=== PATIENT | female | born 1945 | race Caucasian/White ===

== ENCOUNTER 2018-04-09 09:47 | Inpatient (IN) | payer MEDICARE ==
[~2018-04-09] VITALS: Ht 157.5 cm; Wt 93.4 kg
[~2018-04-09 09:47] MED LIST: ASPI-1181 PO; AUD IH; DULO60CA63 PO; FLUT1AER IH; FURO20TA4 PO; MIDO5TAB PO; PRED10TA23 PO; SIMV20TA6 PO; TIOT18CA3 IH; TRAZ-187 PO
[2018-04-09 10:25] VITALS: BP 125/56
[2018-04-09] MEDS ORDERED: LEVOFLOXACIN 750 MG/D5W 150 ML 150 ML IV SCH (11:15)
[2018-04-09] MEDS ORDERED: ESOM40CA PO (11:22)
[2018-04-09 11:44] LABS: BASOPHILS % (AUTO) 0.5 % (0.0-5.0); EOSINOPHILS % (AUTO) 1.5 % (0.0-8.0); HEMATOCRIT 38.4 % (36-48); LYMPHOCYTES % (AUTO) 35.2 % (21.0-51.0); MEAN CORPUSCULAR HEMOGLOBIN 28.9 pg (27.0-33.0); MEAN CORPUSCULAR HGB CONC 33.5 g/dL (32.0-36.0); MEAN CORPUSCULAR VOLUME 86.3 fL (79-99); MONOCYTES % (AUTO) 6.7 % (3.0-13.0); NEUTROPHILS % (AUTO) 56.1 % (40.0-77.0); PLATELET COUNT (AUTO) 293 K/uL (130-400); RED BLOOD CELL COUNT(AUTO) 4.45 MIL/uL (4.00-5.50); RED CELL DISTRIBUTION WIDTH 14.2 % (11.0-15.5); WHITE BLOOD COUNT (AUTO) 8.5 K/uL (4.8-10.8)
[2018-04-09 11:54] LABS: CREATININE 1.1 mg/dL (0.5-1.5); POTASSIUM 3.6 mmol/L (3.5-5.1)
[2018-04-09 12:00] VITALS: BP 113/67
[2018-04-09 12:05] LABS: ABG BASE EXCESS 4.4 mmol/L (-2.0-3.0); ABG HCO3 29.6 mmol/L (21.0-28.0); ABG OXYGEN SATURATION 94.9 % (95.0-99.0); ABG PCO2 46 mmHg (32-45)
[2018-04-09] MEDS: 1/2 NORMAL SALINE 1,000 ML IV SCH (12:09)
[2018-04-09] MEDS: METHYLPREDNISOLONE SOD SUCC 40MG/ML 1ML IVP SCH ×2 (12:10→21:23)
[2018-04-09] MEDS: IPRATROPIUM/ALBUTEROL SULFATE 3 ML SOLUTION IH SCH ×3 (13:34→21:11)
[2018-04-09] MEDS ORDERED: IOHEXOL 350 MG/ML 100ML INFUS..BTL IV ONE (14:10)
[2018-04-09 16:00] VITALS: BP 127/72
[2018-04-09 19:10] VITALS: BP 139/65
[2018-04-10] VITALS (7 sets, daily range): BP systolic 120–145; BP diastolic 71–94
[2018-04-10] MEDS: IPRATROPIUM/ALBUTEROL SULFATE 3 ML SOLUTION IH SCH ×6 (01:00→21:26)
[2018-04-10] MEDS ORDERED: POTASSIUM CHLORIDE 20MEQ/100ML 100 ML IV PRN (01:45)
[2018-04-10] MEDS ORDERED: POTASSIUM CHLORIDE 10% ELIXIR 20 MEQ/15 ML UDCUP PO PRN (01:45)
[2018-04-10] MEDS ORDERED: DOCUSATE SODIUM 100 MG CAP PO PRN (01:45)
[2018-04-10] MEDS ORDERED: METOCLOPRAMIDE 10 MG/2 ML VIAL IVP PRN (01:45)
[2018-04-10] MEDS ORDERED: MAGNESIUM HYDROXIDE 30 ML/UDCUP PO PRN (01:45)
[2018-04-10] MEDS ORDERED: LIDOCAINE HCL-MPF 1% 2ML VIAL IVP PRN (01:45)
[2018-04-10] MEDS ORDERED: ACETAMINOPHEN 325 MG TAB PO PRN (01:45)
[2018-04-10] MEDS ORDERED: POTASSIUM CHLORIDE 20 MEQ ERTAB PO PRN (01:45)
[2018-04-10] MEDS: METHYLPREDNISOLONE SOD SUCC 40MG/ML 1ML IVP SCH ×3 (04:20→18:21)
[2018-04-10] MEDS: 1/2 NORMAL SALINE 1,000 ML IV SCH (04:28)
[2018-04-10] MEDS: ACETAMINOPHEN 325 MG TAB PO PRN ×2 (04:35→12:49)
[2018-04-10] MEDS ORDERED: BENZ-51 PO (05:56)
[2018-04-10] MEDS ORDERED: LEVO750T46 PO (05:57)
[2018-04-10] MEDS ORDERED: PRED20TA3 PO (06:02)
[2018-04-10] MEDS ORDERED: FURO40TA7 PO (06:02)
[2018-04-10] MEDS ORDERED: ALBU90AE IH (06:02)
[2018-04-10] MEDS: FAMOTIDINE 20MG TAB 20 MG TAB PO SCH (08:49)
[2018-04-10] MEDS ORDERED: NON-FORMULARY MEDICATION 1 EACH (Albuterol Sulfate 2.5 MG) IH SCH (10:15)
[2018-04-10] MEDS ORDERED: BENZONATATE 100 MG CAPSULE PO PRN (10:15)
[2018-04-10] MEDS: IPRATROPIUM 0.5 MG/2.5 ML INH IH SCH ×2 (12:00→18:00)
[2018-04-10] MEDS: GUAIFENESIN 600 MG TABLET.ER PO PRN ×2 (12:48→23:07)
[2018-04-10] MEDS: BUDESONIDE 0.5 MG/2 ML INH IH SCH (19:08)
[2018-04-10] MEDS: SIMVASTATIN 20 MG TABLET PO SCH (23:07)
[2018-04-10] MEDS: TRAZODONE HCL 100 MG TABLET PO SCH (23:07)
[2018-04-11] MEDS: IPRATROPIUM 0.5 MG/2.5 ML INH IH SCH
[2018-04-11] MEDS: IPRATROPIUM/ALBUTEROL SULFATE 3 ML SOLUTION IH SCH ×5 (01:23→22:29)
[2018-04-11 03:20] VITALS: BP 156/73
[2018-04-11] MEDS: METHYLPREDNISOLONE SOD SUCC 40MG/ML 1ML IVP SCH ×3 (04:28→18:42)
[2018-04-11] MEDS: BUDESONIDE 0.5 MG/2 ML INH IH SCH ×2 (06:42→22:29)
[2018-04-11 08:01] VITALS: BP 141/79
[2018-04-11] MEDS ORDERED: LEVOFLOXACIN 750 MG/D5W 150 ML 150 ML IV SCH (09:00)
[2018-04-11] MEDS: GUAIFENESIN 600 MG TABLET.ER PO PRN ×2 (09:01→17:55)
[2018-04-11] MEDS: ASPIRIN 81 MG EC TAB PO SCH (09:04)
[2018-04-11] MEDS: FAMOTIDINE 20MG TAB 20 MG TAB PO SCH (09:04)
[2018-04-11] MEDS: PANTOPRAZOLE SODIUM 40 MG TABLET.DR PO SCH (09:04)
[2018-04-11 11:42] VITALS: BP 128/82
[2018-04-11] MEDS ORDERED: DULOXETINE HCL 30 MG CAP PO SCH (16:00)
[2018-04-11 16:47] VITALS: BP 135/77
[2018-04-11 19:00] VITALS: BP 150/83
[2018-04-11] MEDS: TRAZODONE HCL 100 MG TABLET PO SCH (21:07)
[2018-04-11] MEDS: SIMVASTATIN 20 MG TABLET PO SCH (21:08)
[2018-04-11 23:00] VITALS: BP 132/66
[2018-04-12] MEDS: METHYLPREDNISOLONE SOD SUCC 40MG/ML 1ML IVP SCH ×2 (03:16→11:56)
[2018-04-12 03:20] VITALS: BP 137/92
[2018-04-12] MEDS: GUAIFENESIN 600 MG TABLET.ER PO PRN (04:32)
[2018-04-12] MEDS: IPRATROPIUM/ALBUTEROL SULFATE 3 ML SOLUTION IH SCH ×2 (07:06→13:24)
[2018-04-12] MEDS: BUDESONIDE 0.5 MG/2 ML INH IH SCH (07:06)
[2018-04-12 08:00] VITALS: BP 117/71
[2018-04-12] MEDS: ASPIRIN 81 MG EC TAB PO SCH (09:37)
[2018-04-12] MEDS: FAMOTIDINE 20MG TAB 20 MG TAB PO SCH (09:38)
[2018-04-12] MEDS: PANTOPRAZOLE SODIUM 40 MG TABLET.DR PO SCH (09:38)
[2018-04-12 12:00] VITALS: BP 146/84
[2018-04-12] MEDS ORDERED: DULOXETINE HCL 30 MG CAP PO SCH (16:00)
== END 2018-04-12 14:45 | disposition home or self-care (01) | DRG 191 ==
LOC: EDH 09:47 → EDHIP 10:06 → 3BH 10:27
PROVIDERS: ADMIT Internal Medicine; ATTEND Internal Medicine
PROC: 5A09357 Assistance with Respiratory Ventilation, Less than 24 Consecutive Hours, Continuous Positive Airway Pressure (ICD-10-PCS; principal; 2018-04-10)
PROC: 5A09357 Assistance with Respiratory Ventilation, Less than 24 Consecutive Hours, Continuous Positive Airway Pressure (ICD-10-PCS; 2018-04-10)
DX: J44.1 Chronic obstructive pulmonary disease with (acute) exacerbation (principal); J96.11 Chronic respiratory failure with hypoxia; T38.0X5A Adverse effect of glucocorticoids and synthetic analogues, initial encounter; G47.33 Obstructive sleep apnea (adult) (pediatric); E66.9 Obesity, unspecified; R73.9 Hyperglycemia, unspecified; I10 Essential (primary) hypertension; F41.8 Other specified anxiety disorders; Z68.37 Body mass index [BMI] 37.0-37.9, adult; Z99.81 Dependence on supplemental oxygen; Z87.891 Personal history of nicotine dependence; Z88.0 Allergy status to penicillin; Y92.89 Other specified places as the place of occurrence of the external cause
CPT/HCPCS: 36415; 36600; 71046; 71275; 80048; 80339; 82803; 82948; 85025; 87071; 87205; 94640; 94664; 94668; J1956; J2920; Q9967

== ENCOUNTER → 2018-07-09 | Outpatient (CLI) | payer MEDICARE ==
[~2018-07-09] MED LIST changes: +ALBU90AE IH; +BENZ-51 PO; -DULO60CA63 PO; +ESOM40CA PO; -FURO20TA4 PO; +FURO40TA7 PO; +LEVO750T46 PO; -MIDO5TAB PO; -PRED10TA23 PO
[2018-07-09 10:17] LABS: ABG BASE EXCESS 3.1 mmol/L (-2.0-3.0); ABG OXYGEN SATURATION 91.5 % (95.0-99.0); ABG PCO2 43 mmHg (32-45)
== END | disposition home or self-care (01) ==
LOC: RAH 09:32
PROVIDERS: ATTEND Internal Medicine
DX: I31.3 Pericardial effusion (noninflammatory) (principal); R94.31 Abnormal electrocardiogram [ECG] [EKG]; R06.02 Shortness of breath
CPT/HCPCS: 36600; 82803; 93005; 93306

== ENCOUNTER 2018-08-22 09:44 | Inpatient (IN) | payer MEDICARE | END 2018-08-29 17:30 | LOC: EDH 09:44 → EDHIP 14:38 → 2AH 08-26 15:48 → 2CH 22:47 | PROC: 0T778DZ Dilation of Left Ureter with Intraluminal Device, Via Natural or Artificial Opening Endoscopic (ICD-10-PCS; principal; 2018-08-22 11:50) | DX: A41.51 Sepsis due to Escherichia coli [E. coli] (principal); R65.21 Severe sepsis with septic shock; N13.2 Hydronephrosis with renal and ureteral calculous obstruction; N17.9 Acute kidney failure, unspecified; N13.6 Pyonephrosis; J44.1 Chronic obstructive pulmonary disease with (acute) exacerbation; E66.9 Obesity, unspecified; R09.02 Hypoxemia; I12.9 Hypertensive chronic kidney disease with stage 1 through stage 4 chronic kidney disease, or unspecified chronic kidney disease; Z99.81 Dependence on supplemental oxygen ==

== ENCOUNTER → 2018-10-20 | Outpatient (CLI) | payer MEDICARE ==
[~2018-10-20] MED LIST changes: +ALBUTEROL NEB IH; -ASPI-1181 PO; +ASPI-555 PO; -AUD IH; +DULO60CA63 PO; +FURO20TA4 PO; -FURO40TA7 PO; -LEVO750T46 PO; +MIDO5TAB PO; +SALBUTAMOL IH; -SIMV20TA6 PO; +SPIR25TA6 PO; -TRAZ-187 PO
== END | disposition home or self-care (01) ==
LOC: RAH 13:17
PROVIDERS: ATTEND Internal Medicine
DX: J44.9 Chronic obstructive pulmonary disease, unspecified (principal); M47.815 Spondylosis without myelopathy or radiculopathy, thoracolumbar region
CPT/HCPCS: 71250

== ENCOUNTER 2020-03-04 11:07 | Inpatient (IN) | payer MEDICARE ==
[~2020-03-04] VITALS: Ht 157.5 cm; Wt 91.6 kg
[~2020-03-04 11:07] MED LIST changes: -ALBU90AE IH; -ALBUTEROL NEB IH; -ASPI-555 PO; +ASPI-556 PO; -BENZ-51 PO; -DULO60CA63 PO; +DULO60CA64 PO; +EZET10TA48 PO; -FLUT1AER IH; -MIDO5TAB PO; +REVE175V IH; +TERB250T51 PO; -TIOT18CA3 IH; +TRAZ-187 PO
[2020-03-04] MEDS ORDERED: DOXYCYCLINE 100MG+NS 250ML IV SCH (12:30)
[2020-03-04] MEDS: CEFTRIAXONE SODIUM 1 GM IVP SCH (12:30)
[2020-03-04] MEDS ORDERED: ALBUTEROL INHALER 90MCG/INH IH PRN (12:45)
[2020-03-04] MEDS ORDERED: TRAZODONE HCL 100 MG TABLET PO PRN (12:45)
[2020-03-04] MEDS: DOXYCYCLINE 100MG+NS 250ML 250 ML IV SCH (13:00)
[2020-03-04] MEDS ORDERED: ACETAMINOPHEN 325 MG TAB PO PRN (13:00)
[2020-03-04] MEDS ORDERED: DOXYCYCLINE 100MG+NS 250ML 250 ML IV ONE (13:07)
[2020-03-04] MEDS: METHYLPREDNISOLONE SOD SUCC 40MG/ML 1ML IVP SCH ×2 (14:00→21:00)
[2020-03-04] MEDS ORDERED: CEFTRIAXONE SODIUM 1 GM ONE (14:11)
[2020-03-04] MEDS ORDERED: SODIUM CHLORIDE 0.9% 50 ML IV ONE (14:11)
[2020-03-04] MEDS ORDERED: METHYLPREDNISOLONE SOD SUCC 40MG/ML 1ML ONE ×2 (14:11→21:33)
[2020-03-04] MEDS: INSULIN HUMULIN R 100 UNIT/ML 3ML SQ SCH ×2 (16:30→21:00)
[2020-03-04] MEDS ORDERED: ALBUTEROL INHALER 90MCG/INH IH ONE (19:49)
[2020-03-04] MEDS ORDERED: FAMOTIDINE/PF 20 MG/2 ML VIAL IV ONE (21:29)
[2020-03-04] MEDS ORDERED: INSULIN HUMULIN R 100 UNIT/ML 3ML ONE (21:29)
[2020-03-05] MEDS: CEFTRIAXONE SODIUM 1 GM IVP SCH ×2 (00:30→13:05)
[2020-03-05] MEDS: DOXYCYCLINE 100MG+NS 250ML 250 ML IV SCH ×2 (01:00→13:05)
[2020-03-05] MEDS ORDERED: CEFTRIAXONE SODIUM 1 GM ONE (01:14)
[2020-03-05] MEDS ORDERED: DOXYCYCLINE 100MG+NS 250ML 250 ML IV ONE (01:14)
[2020-03-05 04:40] VITALS: BP 117/63
[2020-03-05] MEDS: INSULIN HUMULIN R 100 UNIT/ML 3ML SQ SCH ×4 (05:53→21:00)
[2020-03-05 08:00] VITALS: BP 124/74
[2020-03-05 08:18] LABS: BASOPHILS % (AUTO) 0.1 % (0.0-5.0); HEMATOCRIT 43.1 % (36-48); LYMPHOCYTES % (AUTO) 16.8 % (21.0-51.0); MEAN CORPUSCULAR HEMOGLOBIN 28.4 pg (27.0-33.0); MEAN CORPUSCULAR HGB CONC 31.8 g/dL (32.0-36.0); MEAN CORPUSCULAR VOLUME 89.2 fL (79-99); MONOCYTES % (AUTO) 2.5 % (3.0-13.0); NEUTROPHILS % (AUTO) 80.2 % (40.0-77.0); PLATELET COUNT (AUTO) 322 K/uL (130-400); RED BLOOD CELL COUNT(AUTO) 4.83 MIL/uL (4.00-5.50); RED CELL DISTRIBUTION WIDTH 12.5 % (11.0-15.5); WHITE BLOOD COUNT (AUTO) 11.2 K/uL (4.8-10.8)
[2020-03-05] MEDS: FAMOTIDINE/PF 20 MG/2 ML VIAL IV SCH (08:43)
[2020-03-05] MEDS: FUROSEMIDE 20 MG TABLET PO SCH (08:44)
[2020-03-05] MEDS: ENOXAPARIN SODIUM 40 MG/0.4 ML SYRINGE SQ SCH (08:44)
[2020-03-05] MEDS: DULOXETINE HCL 30 MG CAP PO SCH (08:45)
[2020-03-05 08:56] LABS: ALANINE AMINOTRANSFERASE 19 U/L (12-78); ALBUMIN 3.3 g/dL (3.5-5.0); ASPARTATE AMINOTRANSFERASE 13 U/L (10-37); BILIRUBIN,TOTAL 0.3 mg/dL (0.2-1.0); CARBON DIOXIDE 30 mmol/L (21-32); CHLORIDE 105 mmol/L (101-111); CREATININE 1.2 mg/dL (0.5-1.5); GLOMERULAR FILTR. RATE CALC 47 mL/min (>60); GLUCOSE,RANDOM 163 mg/dL (70-105); POTASSIUM 4.3 mmol/L (3.5-5.1); SODIUM SERUM 143 mmol/L (136-145); TOTAL PROTEIN, SERUM 6.9 g/dL (6.0-8.3); UREA NITROGEN, BLOOD 24 mg/dL (7-18)
[2020-03-05] MEDS: METHYLPREDNISOLONE SOD SUCC 40MG/ML 1ML IVP SCH (09:04)
[2020-03-05 12:00] VITALS: BP 136/68
[2020-03-05] MEDS: PHARMACY COMMUNICATION MISC SCH ×3 (12:45→20:45)
[2020-03-05] MEDS: METHYLPREDNISOLONE SOD SUCC 125MG/2ML VIAL IVP SCH ×2 (13:10→22:38)
[2020-03-05 14:13] LABS: ABG BASE EXCESS 0.7 mmol/L (-2.0-3.0); ABG HCO3 25.7 mmol/L (21.0-28.0); ABG OXYGEN SATURATION 95.8 % (95.0-99.0); ABG PCO2 42 mmHg (32-45)
--- NOTE | 2020-03-05 15:42 | NUR ---
CM NOTE cm attempted phone call to patient to discuss d/c planning. Patient asked CM to call back at a later time. CM to follow up.
[2020-03-05 16:00] VITALS: BP 132/75
--- NOTE | 2020-03-05 17:17 | NUR ---
D/C PLAN CM spoke to pt regarding d/c planning. States she lives with spouse and he can assist in care as needed. Pt has wk, w/c, home o2, nebulizer, and NIV. CM offered short term snf/rehab as possible d/c option. Pt declined at this time. Plan to home. No needs verbalized or identified. CM to f/u. Addendum: 03/05/20 at 1718 by DRE RAHMAN CM Amended: Links added.
[2020-03-05] MEDS ORDERED: BUDESONIDE 0.5 MG/2 ML INH IH SCH (18:00)
[2020-03-05 19:45] VITALS: BP 120/59
[2020-03-05 20:15] VITALS: BP 127/76
[2020-03-06] VITALS (7 sets, daily range): BP systolic 120–143; BP diastolic 55–75
[2020-03-06] MEDS ORDERED: MEROPENEM 500 MG VIAL ONE ×2 (00:13→01:38)
[2020-03-06] MEDS: PHARMACY COMMUNICATION MISC SCH ×6 (00:45→19:50)
[2020-03-06] MEDS: CEFTRIAXONE SODIUM 1 GM IVP SCH ×2 (01:45→13:50)
[2020-03-06] MEDS: DOXYCYCLINE 100MG+NS 250ML 250 ML IV SCH ×2 (01:46→13:50)
[2020-03-06 05:52] LABS: BASOPHILS % (AUTO) 0.2 % (0.0-5.0); HEMATOCRIT 39.5 % (36-48); MEAN CORPUSCULAR HEMOGLOBIN 28.7 pg (27.0-33.0); MEAN CORPUSCULAR HGB CONC 32.2 g/dL (32.0-36.0); MEAN CORPUSCULAR VOLUME 89.2 fL (79-99); MONOCYTES % (AUTO) 1.6 % (3.0-13.0); NEUTROPHILS % (AUTO) 87.5 % (40.0-77.0); PLATELET COUNT (AUTO) 299 K/uL (130-400); RED BLOOD CELL COUNT(AUTO) 4.43 MIL/uL (4.00-5.50); RED CELL DISTRIBUTION WIDTH 12.7 % (11.0-15.5); WHITE BLOOD COUNT (AUTO) 11.6 K/uL (4.8-10.8)
[2020-03-06 06:24] LABS: ALANINE AMINOTRANSFERASE 19 U/L (12-78); ALBUMIN 3.1 g/dL (3.5-5.0); ASPARTATE AMINOTRANSFERASE 11 U/L (10-37); BILIRUBIN,TOTAL 0.3 mg/dL (0.2-1.0); CARBON DIOXIDE 28 mmol/L (21-32); CHLORIDE 105 mmol/L (101-111); CREATININE 1.2 mg/dL (0.5-1.5); GLOMERULAR FILTR. RATE CALC 47 mL/min (>60); GLUCOSE,RANDOM 190 mg/dL (70-105); POTASSIUM 4.3 mmol/L (3.5-5.1); SODIUM SERUM 142 mmol/L (136-145); TOTAL PROTEIN, SERUM 6.3 g/dL (6.0-8.3); UREA NITROGEN, BLOOD 31 mg/dL (7-18)
[2020-03-06] MEDS: INSULIN HUMULIN R 100 UNIT/ML 3ML SQ SCH ×4 (07:30→21:00)
[2020-03-06] MEDS: FUROSEMIDE 20 MG TABLET PO SCH (08:23)
[2020-03-06] MEDS: DULOXETINE HCL 30 MG CAP PO SCH (08:23)
[2020-03-06] MEDS: ENOXAPARIN SODIUM 40 MG/0.4 ML SYRINGE SQ SCH (08:23)
[2020-03-06] MEDS: METHYLPREDNISOLONE SOD SUCC 125MG/2ML VIAL IVP SCH ×2 (08:24→14:08)
[2020-03-06] MEDS: FAMOTIDINE/PF 20 MG/2 ML VIAL IV SCH (08:24)
[2020-03-06 08:55] LABS: ABG BASE EXCESS -0.7 mmol/L (-2.0-3.0); ABG HCO3 23.6 mmol/L (21.0-28.0); ABG OXYGEN SATURATION 96.9 % (95.0-99.0); ABG PCO2 38 mmHg (32-45)
[2020-03-06] MEDS ORDERED: FLUTICASONE/SALMETEROL 100MCG-50MCG/DISKUS IH SCH (12:43)
[2020-03-06] MEDS: FLUTICASONE/VILANTEROL 1 EACH AER.POW.BA IH SCH (13:06)
[2020-03-07] MEDS: METHYLPREDNISOLONE SOD SUCC 125MG/2ML VIAL IVP SCH ×2 (00:18→08:24)
[2020-03-07] MEDS: CEFTRIAXONE SODIUM 1 GM IVP SCH ×2 (00:19→12:30)
[2020-03-07] MEDS: DOXYCYCLINE 100MG+NS 250ML 250 ML IV SCH ×2 (00:19→13:00)
[2020-03-07] MEDS: PHARMACY COMMUNICATION MISC SCH ×5 (00:45→15:15)
[2020-03-07 04:30] VITALS: BP 133/61
[2020-03-07 05:41] LABS: BASOPHILS % (AUTO) 0.1 % (0.0-5.0); HEMATOCRIT 39.2 % (36-48); LYMPHOCYTES % (AUTO) 10.1 % (21.0-51.0); MEAN CORPUSCULAR HEMOGLOBIN 28.5 pg (27.0-33.0); MEAN CORPUSCULAR HGB CONC 31.9 g/dL (32.0-36.0); MEAN CORPUSCULAR VOLUME 89.5 fL (79-99); NEUTROPHILS % (AUTO) 87.1 % (40.0-77.0); PLATELET COUNT (AUTO) 294 K/uL (130-400); RED BLOOD CELL COUNT(AUTO) 4.38 MIL/uL (4.00-5.50); RED CELL DISTRIBUTION WIDTH 12.8 % (11.0-15.5); WHITE BLOOD COUNT (AUTO) 10.2 K/uL (4.8-10.8)
[2020-03-07 06:28] VITALS: BP 130/58
[2020-03-07 06:28] LABS: ALANINE AMINOTRANSFERASE 18 U/L (12-78); ALBUMIN 2.9 g/dL (3.5-5.0); ASPARTATE AMINOTRANSFERASE 11 U/L (10-37); BILIRUBIN,TOTAL 0.3 mg/dL (0.2-1.0); CARBON DIOXIDE 26 mmol/L (21-32); CHLORIDE 105 mmol/L (101-111); CREATININE 1.2 mg/dL (0.5-1.5); GLOMERULAR FILTR. RATE CALC 47 mL/min (>60); GLUCOSE,RANDOM 163 mg/dL (70-105); POTASSIUM 4.5 mmol/L (3.5-5.1); SODIUM SERUM 141 mmol/L (136-145); TOTAL PROTEIN, SERUM 6.1 g/dL (6.0-8.3); UREA NITROGEN, BLOOD 34 mg/dL (7-18)
[2020-03-07] MEDS: INSULIN HUMULIN R 100 UNIT/ML 3ML SQ SCH (06:32)
[2020-03-07] MEDS: FLUTICASONE/VILANTEROL 1 EACH AER.POW.BA IH SCH (07:34)
[2020-03-07] MEDS: DULOXETINE HCL 30 MG CAP PO SCH (08:24)
[2020-03-07] MEDS: FAMOTIDINE/PF 20 MG/2 ML VIAL IV SCH (08:24)
[2020-03-07] MEDS: FUROSEMIDE 20 MG TABLET PO SCH (08:24)
[2020-03-07] MEDS: ENOXAPARIN SODIUM 40 MG/0.4 ML SYRINGE SQ SCH (08:26)
[2020-03-07 11:00] VITALS: BP 135/75
[2020-03-07 16:00] VITALS: BP_SYST 148; BP_SYST 98; BP_DIAS 67; BP_DIAS 74
[2020-03-07] MEDS ORDERED: METH4TAB3 PO (16:05)
[2020-03-07] MEDS ORDERED: DOXY100C40 PO (16:05)
--- NOTE | 2020-03-07 18:54 | NUR ---
Patient cleared by primary team for discharge and instructed to follow up with PCP and pulmonary team in 3-7 days. COVID PCR is still pending. Patient recommended to have ECHO performed within the week or after PCP evaluation
== END 2020-03-07 18:40 | disposition home or self-care (01) | DRG 189 ==
LOC: EDH 11:07 → EDHIP 11:08 → OBSVTOIN 11:08 → 4AH 03-05 01:47
PROVIDERS: ADMIT Internal Medicine; ATTEND Internal Medicine
DX: J96.21 Acute and chronic respiratory failure with hypoxia (principal); J44.1 Chronic obstructive pulmonary disease with (acute) exacerbation; F32.9 Major depressive disorder, single episode, unspecified; E11.9 Type 2 diabetes mellitus without complications; E66.9 Obesity, unspecified; G47.00 Insomnia, unspecified; Z20.828 Contact with and (suspected) exposure to other viral communicable diseases; F41.9 Anxiety disorder, unspecified; Z68.36 Body mass index [BMI] 36.0-36.9, adult; Z87.891 Personal history of nicotine dependence; Z88.0 Allergy status to penicillin; Z79.4 Long term (current) use of insulin; Z99.81 Dependence on supplemental oxygen; Z82.3 Family history of stroke; Z82.49 Family history of ischemic heart disease and other diseases of the circulatory system; Z83.3 Family history of diabetes mellitus; Z80.0 Family history of malignant neoplasm of digestive organs
CPT/HCPCS: 36415; 36600; 71045; 71046; 80053; 82803; 82948; 83880; 84145; 84484; 85025; 87426; 87804; 93005; G0378; J0696; J1650; J1815; J2185; J2920; J2930; J3490; U0003

== ENCOUNTER 2020-04-13 12:13 | Inpatient (IN) | payer MEDICARE ==
[~2020-04-13] VITALS: Ht 157.5 cm; Wt 94.1 kg
[~2020-04-13 12:13] MED LIST changes: +DOXY100C40 PO; +METH4TAB3 PO
[2020-04-13 12:46] LABS: BASOPHILS % (AUTO) 0.7 % (0.0-5.0); EOSINOPHILS % (AUTO) 2.7 % (0.0-8.0); HEMATOCRIT 41.2 % (36-48); LYMPHOCYTES % (AUTO) 24.8 % (21.0-51.0); MEAN CORPUSCULAR HEMOGLOBIN 28.9 pg (27.0-33.0); MEAN CORPUSCULAR VOLUME 90.2 fL (79-99); NEUTROPHILS % (AUTO) 64.8 % (40.0-77.0); PLATELET COUNT (AUTO) 343 K/uL (130-400); RED BLOOD CELL COUNT(AUTO) 4.57 MIL/uL (4.00-5.50); RED CELL DISTRIBUTION WIDTH 13.3 % (11.0-15.5); WHITE BLOOD COUNT (AUTO) 11.3 K/uL (4.8-10.8)
[2020-04-13 12:56] LABS: CREATININE 1.2 mg/dL (0.5-1.5); POTASSIUM 3.5 mmol/L (3.5-5.1)
[2020-04-13 13:05] LABS: ALBUMIN 3.6 g/dL (3.5-5.0); BILIRUBIN,TOTAL 0.5 mg/dL (0.2-1.0)
[2020-04-13] MEDS ORDERED: METHYLPREDNISOLONE SOD SUCC 125MG/2ML VIAL ONE ×2 (13:07→23:06)
[2020-04-13] MEDS ORDERED: LEVOFLOXACIN 750 MG/D5W 150 ML 150 ML ONE (13:07)
[2020-04-13] MEDS ORDERED: LACTULOSE 20 GM/30 ML UDCUP PO PRN (17:15)
[2020-04-13] MEDS ORDERED: ONDANSETRON HCL 4 MG/2 ML VIAL IV PRN (17:15)
[2020-04-13] MEDS ORDERED: ZOLPIDEM TARTRATE 5 MG TAB PO PRN (17:15)
[2020-04-13] MEDS ORDERED: ACETAMINOPHEN 325 MG TAB PO PRN ×2 (17:15)
[2020-04-13] MEDS ORDERED: METHYLPREDNISOLONE SOD SUCC 125MG/2ML VIAL IV SCH (17:15)
[2020-04-13] MEDS ORDERED: MAG HYDROX/AL HYDROX/SIMETH ES 30 ML SUSP UDCUP PO PRN (17:15)
[2020-04-13] MEDS ORDERED: LEVOFLOXACIN 750 MG/D5W 150 ML 150 ML IV SCH (17:34)
[2020-04-13] MEDS ORDERED: POTASSIUM CHLORIDE 10MEQ/100ML 100 ML IV PRN ×2 (17:45)
[2020-04-13] MEDS ORDERED: POTASSIUM CHLORIDE 20 MEQ ERTAB PO PRN (17:45)
[2020-04-13] MEDS ORDERED: LIDOCAINE HCL-MPF 1% 2ML VIAL IV PRN ×2 (17:45)
[2020-04-13] MEDS ORDERED: POTASSIUM CHLORIDE 10% ELIXIR 20 MEQ/15 ML UDCUP PO PRN (17:45)
[2020-04-13] MEDS: IPRATROPIUM/ALBUTEROL SULFATE 3 ML SOLUTION IH SCH (18:39)
[2020-04-13] MEDS ORDERED: POTASSIUM CHLORIDE 20 MEQ ERTAB PO ONE (19:43)
[2020-04-13] MEDS ORDERED: METHYLPREDNISOLONE SOD SUCC 40MG/ML 1ML IVP SCH (21:00)
[2020-04-13] MEDS ORDERED: FAMOTIDINE/PF 20 MG/2 ML VIAL IV SCH (21:00)
[2020-04-13] MEDS ORDERED: POTASSIUM CHLORIDE 10% ELIXIR 20 MEQ/15 ML UDCUP ONE ×2 (21:58→23:54)
[2020-04-14] MEDS: IPRATROPIUM/ALBUTEROL SULFATE 3 ML SOLUTION IH SCH ×5 (00:35→23:35)
[2020-04-14] MEDS ORDERED: INSULIN HUMULIN R 100 UNIT/ML 3ML ONE ×2 (04:53→08:18)
[2020-04-14] MEDS ORDERED: DEXTROSE 50%-WATER 50 ML DISP.SYRIN IV PRN (05:00)
[2020-04-14] MEDS ORDERED: GLUCAGON 1MG KIT 1 MG ML IM PRN (05:00)
[2020-04-14] MEDS ORDERED: IPRATROPIUM/ALBUTEROL SULFATE 3 ML SOLUTION IH ONE (06:17)
[2020-04-14] MEDS: INSULIN HUMULIN R 100 UNIT/ML 3ML SQ SCH ×4 (07:30→20:28)
[2020-04-14] MEDS ORDERED: METHYLPREDNISOLONE SOD SUCC 40MG/ML 1ML ONE (08:17)
[2020-04-14] MEDS ORDERED: FAMOTIDINE/PF 20 MG/2 ML VIAL IV ONE (08:18)
[2020-04-14] MEDS: FAMOTIDINE/PF 20 MG/2 ML VIAL IV SCH (09:00)
[2020-04-14] MEDS: METHYLPREDNISOLONE SOD SUCC 40MG/ML 1ML IVP SCH ×2 (09:00→20:31)
[2020-04-14] MEDS ORDERED: ENOXAPARIN SODIUM 30 MG/0.3 ML SQ SCH (09:00)
[2020-04-14 09:45] VITALS: BP 143/79
[2020-04-14 12:18] LABS: BASOPHILS % (AUTO) 0.2 % (0.0-5.0); EOSINOPHILS % (AUTO) 0.1 % (0.0-8.0); HEMATOCRIT 40.2 % (36-48); LYMPHOCYTES % (AUTO) 8.8 % (21.0-51.0); MEAN CORPUSCULAR HGB CONC 31.8 g/dL (32.0-36.0); MEAN CORPUSCULAR VOLUME 91.2 fL (79-99); MONOCYTES % (AUTO) 1.4 % (3.0-13.0); NEUTROPHILS % (AUTO) 88.2 % (40.0-77.0); PLATELET COUNT (AUTO) 295 K/uL (130-400); RED BLOOD CELL COUNT(AUTO) 4.41 MIL/uL (4.00-5.50); RED CELL DISTRIBUTION WIDTH 13.3 % (11.0-15.5); WHITE BLOOD COUNT (AUTO) 12.5 K/uL (4.8-10.8)
[2020-04-14] MEDS ORDERED: LEVOFLOXACIN 750 MG/D5W 150 ML 150 ML IV SCH (12:26)
[2020-04-14 12:28] LABS: BILIRUBIN,TOTAL 0.3 mg/dL (0.2-1.0); POTASSIUM 4.7 mmol/L (3.5-5.1); TOTAL PROTEIN, SERUM 6.6 g/dL (6.0-8.3)
[2020-04-14 12:48] LABS: ALBUMIN 3.4 g/dL (3.5-5.0); CREATININE 1.3 mg/dL (0.5-1.5)
[2020-04-14] MEDS ORDERED: ARFO15VI3 IH (14:10)
[2020-04-14] MEDS ORDERED: [UNRECOGNIZED DRUG - OTHER] (14:10)
[2020-04-14] MEDS ORDERED: ALBUTEROL (14:10)
[2020-04-14] MEDS ORDERED: IOHEXOL-350 75 ML VIAL IV ONE (15:53)
[2020-04-14] MEDS: SODIUM CHLORIDE 3% FOR INHALATION 4 ML/AMP VIAL.NEB IH ONE ×2 (15:58→16:19)
[2020-04-14 16:00] VITALS: BP 166/89
[2020-04-14] MEDS: CEFTAZIDIME PENTAHYDRATE 2 GM/VIAL IVP SCH (16:19)
[2020-04-14] MEDS ORDERED: ACETYLCYSTEINE 20% 200MG/ML 4ML VIAL IH SCH (18:00)
[2020-04-14] MEDS: BUDESONIDE 0.5 MG/2 ML INH IH SCH (19:17)
[2020-04-14 20:00] VITALS: BP 146/83
[2020-04-14 23:52] VITALS: BP 146/92
[2020-04-15] MEDS: CEFTAZIDIME PENTAHYDRATE 2 GM/VIAL IVP SCH ×2 (02:45→15:26)
[2020-04-15 04:00] VITALS: BP 152/78
[2020-04-15 05:44] LABS: HEMATOCRIT 39.3 % (36-48); MEAN CORPUSCULAR HEMOGLOBIN 28.5 pg (27.0-33.0); MEAN CORPUSCULAR HGB CONC 31.8 g/dL (32.0-36.0); MEAN CORPUSCULAR VOLUME 89.5 fL (79-99); RED BLOOD CELL COUNT(AUTO) 4.39 MIL/uL (4.00-5.50); RED CELL DISTRIBUTION WIDTH 13.8 % (11.0-15.5); WHITE BLOOD COUNT (AUTO) 15.5 K/uL (4.8-10.8)
[2020-04-15] MEDS: INSULIN HUMULIN R 100 UNIT/ML 3ML SQ SCH ×3 (05:57→20:58)
[2020-04-15] MEDS: BUDESONIDE 0.5 MG/2 ML INH IH SCH ×2 (06:10→18:38)
[2020-04-15] MEDS: IPRATROPIUM/ALBUTEROL SULFATE 3 ML SOLUTION IH SCH ×4 (06:10→23:20)
[2020-04-15 06:16] LABS: CREATININE 1.2 mg/dL (0.5-1.5); POTASSIUM 4.6 mmol/L (3.5-5.1)
[2020-04-15 08:00] VITALS: BP 129/68
--- NOTE | 2020-04-15 08:00 | NUR ---
LUNGS: LT. SIDE DIMINISHED, RT. SIDE CLEAR Addendum: 04/15/20 at 1152 by LISA MCDANIEL RN RN Amended: Links added.
[2020-04-15] MEDS: METHYLPREDNISOLONE SOD SUCC 40MG/ML 1ML IVP SCH (09:36)
[2020-04-15] MEDS: LEVOFLOXACIN 750 MG/D5W 150 ML 150 ML IV SCH (09:36)
[2020-04-15] MEDS: FAMOTIDINE/PF 20 MG/2 ML VIAL IV SCH (09:37)
[2020-04-15 11:00] VITALS: BP 173/75
[2020-04-15 16:00] VITALS: BP 141/60
--- NOTE | 2020-04-15 17:39 | NUR ---
MET WITH PATIENT AND SPOUSE FOR D/C PLANNING PATIENT LIVES WITH SPOUSE, INDP OF ADLS, HAD O2, NEBULIZER, S/CHAIR, WHEELCHAIR; [facility] [employer] PULMONIC VALVE PLACED IN OCTOBER IN [facility]; STATES IF NEEDS TO WILL RETURN TO [facility] TO HAVE THEM REPLACED/LOOKED AFTER; DCP IS HOME CM TO FOLLOW Addendum: 04/15/20 at 1742 by DARREN RIZZO RN CM Amended: Links added.
[2020-04-15 19:53] VITALS: BP 136/72
[2020-04-15] MEDS ORDERED: METHYLPREDNISOLONE SOD SUCC 40MG/ML 1ML IVP SCH (21:00)
[2020-04-16] VITALS (7 sets, daily range): BP systolic 131–165; BP diastolic 66–99
[2020-04-16] MEDS ORDERED: CEFTAZIDIME PENTAHYDRATE 1 GM/VIAL ONE (03:52)
[2020-04-16] MEDS: CEFTAZIDIME PENTAHYDRATE 2 GM/VIAL IVP SCH ×2 (03:57→15:25)
[2020-04-16 05:55] LABS: MEAN CORPUSCULAR HEMOGLOBIN 28.7 pg (27.0-33.0); MEAN CORPUSCULAR HGB CONC 31.8 g/dL (32.0-36.0); MEAN CORPUSCULAR VOLUME 90.3 fL (79-99); RED BLOOD CELL COUNT(AUTO) 4.32 MIL/uL (4.00-5.50); RED CELL DISTRIBUTION WIDTH 13.7 % (11.0-15.5); WHITE BLOOD COUNT (AUTO) 10.4 K/uL (4.8-10.8)
[2020-04-16] MEDS: IPRATROPIUM/ALBUTEROL SULFATE 3 ML SOLUTION IH SCH ×3 (06:13→18:34)
[2020-04-16] MEDS: BUDESONIDE 0.5 MG/2 ML INH IH SCH ×2 (06:13→18:34)
[2020-04-16] MEDS: INSULIN HUMULIN R 100 UNIT/ML 3ML SQ SCH ×4 (06:18→20:15)
[2020-04-16 06:19] LABS: CREATININE 1.1 mg/dL (0.5-1.5); MAGNESIUM 2.4 mg/dL (1.80-2.40); POTASSIUM 4.7 mmol/L (3.5-5.1)
[2020-04-16] MEDS: FAMOTIDINE/PF 20 MG/2 ML VIAL IV SCH (09:33)
[2020-04-16] MEDS: PREDNISONE 20 MG TABLET PO SCH (09:33)
[2020-04-16] MEDS: LEVOFLOXACIN 750 MG/D5W 150 ML 150 ML IV SCH (09:33)
[2020-04-16] MEDS ORDERED: SPIRONOLACTONE 25 MG TAB PO SCH (11:47)
[2020-04-16] MEDS: ASPIRIN 81 MG EC TAB PO SCH (12:13)
[2020-04-16] MEDS: FUROSEMIDE 20 MG TABLET PO SCH (12:14)
[2020-04-16] MEDS: HYDRALAZINE HCL 20 MG/ML VIAL IV PRN (13:02)
[2020-04-16] MEDS ORDERED: PRED20TA3 PO (13:42)
[2020-04-16] MEDS ORDERED: PRED10TA3 PO (13:42)
[2020-04-16] MEDS ORDERED: LEVO750T46 PO (13:42)
--- NOTE | 2020-04-16 17:50 | NUR ---
WALKED PATIENT PATIENT WAS ABLE TO MAKE ONE COMPLETE LAP AROUND 3RD FLOOR USING A WHEELCHAIR FOR STABILITY AND SUPPLEMENTAL O2 AT 3LPM. PATIENT STATED SHE FELT GOOD.
[2020-04-16] MEDS ORDERED: DULOXETINE HCL 30 MG CAP ONE (18:36)
[2020-04-16] MEDS ORDERED: EZETIMIBE 10 MG TAB ONE (18:36)
[2020-04-16] MEDS ORDERED: TRAZODONE HCL 100 MG TABLET ONE (18:37)
[2020-04-16] MEDS ORDERED: TRAZODONE HCL 100 MG TABLET PO SCH (21:00)
[2020-04-16] MEDS ORDERED: EZETIMIBE 10 MG TAB PO SCH (21:00)
[2020-04-16] MEDS ORDERED: DULOXETINE HCL 30 MG CAP PO SCH (21:00)
[2020-04-17] MEDS: IPRATROPIUM/ALBUTEROL SULFATE 3 ML SOLUTION IH SCH ×3 (00:16→12:28)
[2020-04-17] MEDS: CEFTAZIDIME PENTAHYDRATE 2 GM/VIAL IVP SCH (01:09)
--- NOTE | 2020-04-17 03:22 | NUR ---
patient alert and oriented times 4 with no pain. she was on a nasal canula 3 liters unitl 23:00. patient placed her cpap on at 23:00 and has been asleep since that time. no issues.
[2020-04-17 04:00] VITALS: BP 165/98
[2020-04-17] MEDS: HYDRALAZINE HCL 20 MG/ML VIAL IV PRN (04:12)
[2020-04-17] MEDS: INSULIN HUMULIN R 100 UNIT/ML 3ML SQ SCH ×2 (05:29→14:19)
[2020-04-17 06:24] LABS: HEMATOCRIT 42.1 % (36-48); MEAN CORPUSCULAR HEMOGLOBIN 28.8 pg (27.0-33.0); MEAN CORPUSCULAR HGB CONC 32.5 g/dL (32.0-36.0); MEAN CORPUSCULAR VOLUME 88.6 fL (79-99); RED BLOOD CELL COUNT(AUTO) 4.75 MIL/uL (4.00-5.50); RED CELL DISTRIBUTION WIDTH 13.8 % (11.0-15.5); WHITE BLOOD COUNT (AUTO) 11.7 K/uL (4.8-10.8)
[2020-04-17 06:32] LABS: CREATININE 1.1 mg/dL (0.5-1.5); POTASSIUM 3.7 mmol/L (3.5-5.1)
[2020-04-17] MEDS: BUDESONIDE 0.5 MG/2 ML INH IH SCH (06:53)
[2020-04-17] MEDS: FUROSEMIDE 20 MG TABLET PO SCH (08:51)
[2020-04-17] MEDS: ASPIRIN 81 MG EC TAB PO SCH (08:51)
[2020-04-17] MEDS: LEVOFLOXACIN 750 MG/D5W 150 ML 150 ML IV SCH (08:52)
[2020-04-17] MEDS: FAMOTIDINE/PF 20 MG/2 ML VIAL IV SCH (08:52)
[2020-04-17] MEDS: PREDNISONE 20 MG TABLET PO SCH (08:52)
[2020-04-17 09:56] VITALS: BP 133/67
[2020-04-17 12:00] VITALS: BP 134/72
== END 2020-04-17 16:30 | disposition home or self-care (01) | DRG 189 ==
LOC: EDH 12:13 → EDHIP 13:35 → 3DH 23:09 → EDHIP 23:22 → 3DH 04-14 09:45
PROVIDERS: ADMIT Hospitalist; ATTEND Hospitalist
PROC: 5A09357 Assistance with Respiratory Ventilation, Less than 24 Consecutive Hours, Continuous Positive Airway Pressure (ICD-10-PCS; principal; 2020-04-14)
PROC: 5A09357 Assistance with Respiratory Ventilation, Less than 24 Consecutive Hours, Continuous Positive Airway Pressure (ICD-10-PCS; 2020-04-15)
PROC: 5A09357 Assistance with Respiratory Ventilation, Less than 24 Consecutive Hours, Continuous Positive Airway Pressure (ICD-10-PCS; 2020-04-16)
PROC: 5A09357 Assistance with Respiratory Ventilation, Less than 24 Consecutive Hours, Continuous Positive Airway Pressure (ICD-10-PCS; 2020-04-17)
DX: J96.21 Acute and chronic respiratory failure with hypoxia (principal); J98.11 Atelectasis; Z20.828 Contact with and (suspected) exposure to other viral communicable diseases; G47.33 Obstructive sleep apnea (adult) (pediatric); J43.9 Emphysema, unspecified; E66.01 Morbid (severe) obesity due to excess calories; Z68.38 Body mass index [BMI] 38.0-38.9, adult; Z80.0 Family history of malignant neoplasm of digestive organs; Z82.49 Family history of ischemic heart disease and other diseases of the circulatory system; Z83.3 Family history of diabetes mellitus; Z82.3 Family history of stroke; Z99.81 Dependence on supplemental oxygen; Z87.891 Personal history of nicotine dependence; Z88.0 Allergy status to penicillin
CPT/HCPCS: 36415; 71046; 71250; 71275; 80048; 80053; 82948; 83735; 84132; 85025; 85027; 85378; 87040; 87071; 87077; 87186; 87205; 87426; 94640; 94664; 94667; 94668; G0378; J0360; J0713; J1815; J1956; J2920; J2930; J3490; J7608; Q9967; U0003